=== PATIENT | female | born 2000 | race Caucasian/White ===

== ENCOUNTER 2023-04-28 09:28 | Inpatient (IN) ==
[2023-04-28 10:49] LABS: ALT/SGPT 14 U/L (<40); AST/SGOT 18 U/L (<32); Albumin 4.5 gm/dL (3.2-5.2); Albumin/Globulin Ratio 1.7 (1.0-2.3); Alkaline Phosphatase 54 U/L (39-117); Bilirubin,Total 0.6 mg/dL (0.1-1.0); Blood Urea Nitrogen 14 mg/dL (6-20); Calcium 9.3 mg/dL (8.6-10.4); Carbon Dioxide 21 mmol/L (22-30); Chloride 102 mmol/L (96-108); Globulin 2.6 gm/dL (2.2-3.7); Glomerular Filtration Rate 128; Glucose 128 mg/dL (70-105)
[2023-04-28 11:12] LABS: Appearance,Urine Clear (Clear); Bacteria,Urine Rare /hpf (0); Bilirubin,Urine Negative (Negative); Color,Urine Yellow; Culture Indicated,Urine No; Glucose,Urine (UA) Negative (Negative); Ketones,Urine Negative (Negative); Leukocyte Esterase,Urine Negative /uL (Negative); Mucus,Urine Mod /hpf; Nitrate,Urine Negative (Negative); PH,Urine 5.5 (5.0-9.0); Protein,Urine 30 mg/dL (Negative); Specific Gravity,Urine >= 1.030 (1.000-1.035); Urine Blood Negative ery/mcL (Negative); Urine RBC 0 /hpf (0-3); Urine Squamous Epithelial Cell 6 /hpf (0-4); Urine WBC 1 /hpf (0-4); Urobilinogen,Urine Normal
[2023-04-28 11:42] LABS: Acetaminophen 30.2 ug/mL; Salicylate < 0.3 mg/dL
[2023-04-28] MEDS: ONDANSETRON 4 MG/2 ML VIAL IV ONE (12:31)
[2023-04-28] MEDS: DEXTROSE 5% IV SCH (12:55)
[2023-04-28] MEDS: WATER IV SCH (12:55)
[2023-04-28] MEDS: ACETYLCYSTEINE IV SCH (12:55)
[2023-04-28] MEDS ORDERED: PROMETHAZINE 25 MG/ML VIAL IM PRN (13:40)
[2023-04-28] MEDS ORDERED: IPRATROPIUM/ALBUTEROL 3 ML AMPUL.NEB NEB PRN (13:40)
[2023-04-28] MEDS ORDERED: LACTULOSE 20 GM/30 ML ORAL.SOL PO PRN (13:40)
[2023-04-28] MEDS ORDERED: SENNOSIDES 1 TABLET PO PRN (13:40)
[2023-04-28] MEDS: METOCLOPRAMIDE 10 MG/2 ML VIAL IV PRN (14:00)
[2023-04-28] MEDS: 0.9 % SODIUM CHLORIDE 10 ML SYRINGE IV SCH (14:44)
[2023-04-28] MEDS: CALCIUM CARBONATE 500 MG TAB.CHEW CHEWED PRN (15:40)
[2023-04-28] MEDS ORDERED: ALBUTEROL SULFATE 60 PUFF INHALER INH PRN (16:06)
[2023-04-28 17:33] LABS: Prothrombin Time 14.3 sec (11.9-14.5)
[2023-04-28 18:29] LABS: ALT/SGPT 29 U/L (<40); AST/SGOT 23 U/L (<32); Albumin/Globulin Ratio 1.8 (1.0-2.3); Alkaline Phosphatase 42 U/L (39-117); Bilirubin,Total 0.6 mg/dL (0.1-1.0); Blood Urea Nitrogen 9 mg/dL (6-20); Calcium 8.9 mg/dL (8.6-10.4); Carbon Dioxide 21 mmol/L (22-30); Chloride 101 mmol/L (96-108); Globulin 2.2 gm/dL (2.2-3.7); Glomerular Filtration Rate 128; Glucose 125 mg/dL (70-105)
[2023-04-28] MEDS: morphine 2 MG/ML VIAL IV PRN (18:29)
[2023-04-28] MEDS: DOCUSATE SODIUM 100 MG CAPSULE PO SCH (19:09)
[2023-04-28] MEDS: ONDANSETRON 4 MG/2 ML VIAL IV PRN (19:43)
[2023-04-29 00:48] LABS: ALT/SGPT 39 U/L (<40); AST/SGOT 27 U/L (<32); Albumin 3.9 gm/dL (3.2-5.2); Albumin/Globulin Ratio 1.8 (1.0-2.3); Alkaline Phosphatase 43 U/L (39-117); Bilirubin,Total 0.4 mg/dL (0.1-1.0); Blood Urea Nitrogen 9 mg/dL (6-20); Calcium 8.8 mg/dL (8.6-10.4); Carbon Dioxide 21 mmol/L (22-30); Chloride 104 mmol/L (96-108); Globulin 2.2 gm/dL (2.2-3.7); Glomerular Filtration Rate 136; Glucose 112 mg/dL (70-105)
[2023-04-29 06:44] LABS: ALT/SGPT 40 U/L (<40); AST/SGOT 26 U/L (<32); Albumin 3.9 gm/dL (3.2-5.2); Albumin/Globulin Ratio 1.9 (1.0-2.3); Alkaline Phosphatase 42 U/L (39-117); Bilirubin,Total 0.6 mg/dL (0.1-1.0); Blood Urea Nitrogen 7 mg/dL (6-20); Calcium 8.8 mg/dL (8.6-10.4); Carbon Dioxide 22 mmol/L (22-30); Chloride 105 mmol/L (96-108); Globulin 2.1 gm/dL (2.2-3.7); Glomerular Filtration Rate 128; Glucose 105 mg/dL (70-105)
[2023-04-29] MEDS: DEXTROAMPHETAMINE AMPHETAMINE 20 MG PO SCH (08:17)
[2023-04-29 10:31] LABS: INR 1.2 (0.9-1.1); Prothrombin Time 15.6 sec (11.9-14.5)
[2023-04-29] MEDS: DEXTROAMPHETAMINE AMPHETAMINE 10 MG PO SCH (11:55)
== END 2023-04-29 12:27 | disposition home or self-care (01) | DRG 918 ==
LOC: ED 09:28 → ICU 13:34
PROVIDERS: ADMIT Internal Medicine; ATTEND Internal Medicine

== ENCOUNTER 2023-11-01 17:43 | Inpatient (IN) ==
[2023-11-01] MEDS ORDERED: IOPAMIDOL 100 ML BOTTLE IV ONE (17:44)
[2023-11-01] MEDS: 0.9 % SODIUM CHLORIDE 1,710 ML IV ONE (18:21)
[2023-11-01] MEDS: 0.9 % SODIUM CHLORIDE 500 ML IV ONE (18:25)
[2023-11-01 18:54] LABS: Basophils # (Auto) 0.03 K/mcL (0.00-0.30); Basophils % (Auto) 0.2 % (0.0-2.0); Eosinophils # (Auto) 0 K/mcL (0.00-0.70); Eosinophils % (Auto) 0 % (0.0-7.0); Hematocrit 30.3 % (34.1-44.9); Hemoglobin 10.2 g/dL (11.2-15.7); Lymphocytes # (Auto) 1.28 K/mcL (1.50-4.80); Mean Cell Volume 83.2 fL (80.0-100.0); Mean Corpuscular HGB Conc 33.7 g/dL (31.0-36.0); Mean Platelet Volume 9.3 fL (8.8-12.5); Monocytes # (Auto) 1.04 K/mcL (0.10-0.90); Monocytes % (Auto) 8.1 % (1.0-12.0); Neutrophils % (Auto) 81.5 % (38.0-78.0); Platelet Count 233 K/mcL (140-440); RBC 3.64 M/mcL (3.59-5.38); Red Cell Distribution Width 12.7 % (11.5-14.5); WBC 12.8 K/mcL (4.5-11.0)
[2023-11-01 19:07] LABS: INR 1.2 (0.9-1.1); Prothrombin Time 15.4 sec (11.9-14.5)
[2023-11-01 19:17] LABS: ALT/SGPT < 5 U/L (<40); AST/SGOT 12 U/L (<32); Albumin 3.6 gm/dL (3.2-5.2); Albumin/Globulin Ratio 1.2 (1.0-2.3); Alkaline Phosphatase 63 U/L (39-117); Bilirubin,Total 0.7 mg/dL (0.1-1.0); Blood Urea Nitrogen 7 mg/dL (6-20); Calcium 8.7 mg/dL (8.6-10.4); Carbon Dioxide 20 mmol/L (22-30); Chloride 100 mmol/L (96-108); Globulin 2.9 gm/dL (2.2-3.7); Glomerular Filtration Rate 121; Glucose 190 mg/dL (70-105); Potassium 3.3 mmol/L (3.3-5.1); Sodium 133 mmol/L (133-145)
[2023-11-01] MEDS: cefTRIAXone 2 GM in DEXTROSE 5% IN WATER 50 ML IV ONE (20:23)
[2023-11-01] MEDS: ACETAMINOPHEN 1,000 MG/100 ML BAG IV ONE (20:34)
[2023-11-01 20:35] LABS: Appearance,Urine Slightly Cloudy (Clear); Bacteria,Urine Few /hpf (0); Bilirubin,Urine Negative (Negative); Color,Urine Yellow; Culture Indicated,Urine No; Glucose,Urine (UA) >=1000 mg/dL (Negative); Ketones,Urine Negative (Negative); Leukocyte Esterase,Urine Trace /uL (Negative); Nitrate,Urine Negative (Negative); Protein,Urine 30 mg/dL (Negative); Specific Gravity,Urine 1.015 (1.000-1.035); Urine Blood Trace-lysed ery/mcL (Negative); Urine RBC 2 /hpf (0-3); Urine Squamous Epithelial Cell 11 /hpf (0-4); Urine WBC 25 /hpf (0-4); Urobilinogen,Urine >=8.0 mg/dL
[2023-11-02] MEDS ORDERED: ACETAMINOPHEN 325 MG TABLET PO PRN (00:14)
[2023-11-02] MEDS: 0.9 % SODIUM CHLORIDE 1,000 ML IV SCH (00:49)
[2023-11-02] MEDS: morphine 2 MG/ML VIAL IV PRN (02:24)
[2023-11-02] MEDS ORDERED: POTASSIUM CHLORIDE 20 MEQ TABLET PO PRN (08:33)
[2023-11-02] MEDS ORDERED: POLYETHYLENE GLYCOL 3350 17 GM PACKET PO PRN (08:33)
[2023-11-02] MEDS ORDERED: POTASSIUM CHLORIDE 40 MEQ in DEXTROSE 5% IN WATER 500 ML IV PRN (08:33)
[2023-11-02] MEDS ORDERED: SENNOSIDES 1 TABLET PO PRN (08:33)
[2023-11-02] MEDS ORDERED: MAGNESIUM SULFATE 2 GM/50 ML BAG IV PRN (08:33)
[2023-11-02] MEDS ORDERED: IPRATROPIUM/ALBUTEROL 3 ML AMPUL.NEB NEB PRN (08:33)
[2023-11-02] MEDS ORDERED: METOCLOPRAMIDE 10 MG/2 ML VIAL IV PRN (08:34)
[2023-11-02] MEDS ORDERED: PROCHLORPERAZINE 10 MG/2 ML VIAL IV PRN (08:34)
[2023-11-02] MEDS: NICOTINE 14 MG PATCH TOPICAL SCH (09:18)
[2023-11-02] MEDS: cefTRIAXone 1 GM VIAL IV SCH (09:18)
[2023-11-02] MEDS: ENOXAPARIN 40 MG/0.4 ML SYRINGE SQ SCH (09:18)
[2023-11-02] MEDS: 0.9 % SODIUM CHLORIDE 10 ML SYRINGE IV SCH (12:11)
[2023-11-02] MEDS: ONDANSETRON 4 MG/2 ML VIAL IV PRN (12:17)
[2023-11-02] MEDS: POTASSIUM CHLORIDE 20 MEQ TABLET PO PRN (16:34)
[2023-11-02] MEDS: ACETAMINOPHEN 650 MG/65 ML BAG IV PRN (16:35)
[2023-11-03 06:10] LABS: Basophils # (Auto) 0.03 K/mcL (0.00-0.30); Basophils % (Auto) 0.4 % (0.0-2.0); Eosinophils # (Auto) 0.11 K/mcL (0.00-0.70); Eosinophils % (Auto) 1.6 % (0.0-7.0); Lymphocytes % (Auto) 33.9 % (15.5-49.0); Mean Cell Volume 84.9 fL (80.0-100.0); Mean Corpuscular HGB Conc 32.3 g/dL (31.0-36.0); Mean Platelet Volume 9.3 fL (8.8-12.5); Monocytes # (Auto) 0.74 K/mcL (0.10-0.90); Monocytes % (Auto) 10.4 % (1.0-12.0); Neutrophils % (Auto) 53.6 % (38.0-78.0); Platelet Count 228 K/mcL (140-440); RBC 3.65 M/mcL (3.59-5.38); Red Cell Distribution Width 13.1 % (11.5-14.5); WBC 7.1 K/mcL (4.5-11.0)
[2023-11-03 06:31] LABS: ALT/SGPT 11 U/L (<40); AST/SGOT 11 U/L (<32); Albumin 3.5 gm/dL (3.2-5.2); Albumin/Globulin Ratio 1.5 (1.0-2.3); Alkaline Phosphatase 61 U/L (39-117); Bilirubin,Direct < 0.2 mg/dL (0-0.3); Bilirubin,Total 0.4 mg/dL (0.1-1.0); Blood Urea Nitrogen 3 mg/dL (6-20); Calcium 8.7 mg/dL (8.6-10.4); Carbon Dioxide 21 mmol/L (22-30); Chloride 106 mmol/L (96-108); Globulin 2.3 gm/dL (2.2-3.7); Glomerular Filtration Rate 136; Glucose 88 mg/dL (70-105); Lactate Dehydrogenase 131 U/L (135-225); Phosphorous 3.1 mg/dL (2.5-4.5); Potassium 4.1 mmol/L (3.3-5.1); Sodium 139 mmol/L (133-145); Triglycerides 95 mg/dL (<150); Uric Acid 2.8 mg/dL (2.5-8.0)
[2023-11-03] MEDS: MONTELUKAST 10 MG TABLET PO SCH (09:53)
== END 2023-11-04 12:47 | disposition home or self-care (01) | DRG 872 ==
LOC: ED 17:43 → MEDSUR 11-02 01:45
PROVIDERS: ADMIT Internal Medicine; ATTEND Internal Medicine